=== PATIENT | female | born 2000 | race American Indian/Alaskan Native ===

== ENCOUNTER 2019-05-11 19:49 | Inpatient (IN) | payer OTHER ==
[2019-05-11] MEDS ORDERED: fentaNYL 100 MCG/2 ML INJ IV PRN (21:37)
[2019-05-11] MEDS ORDERED: LIDOCAINE (2%) 20 MG/1 ML VIAL 20 ML MDV INFILTRATI ONE (21:37)
[2019-05-11] MEDS ORDERED: ePHEDrine SULFATE 50 MG/1 ML INJ IV PRN (21:37)
[2019-05-11] MEDS ORDERED: MINERAL OIL 30 ML ORAL LIQD PO PRN (21:37)
[2019-05-11] MEDS ORDERED: TERBUTALINE 1 MG/1 ML INJ SUB-Q PRN (21:37)
[2019-05-11] MEDS ORDERED: NALOXONE 0.4 MG/1 ML INJ IV PRN (21:37)
[2019-05-11] MEDS ORDERED: TERBUTALINE 1 MG/1 ML INJ IVP PRN (21:37)
[2019-05-11] MEDS ORDERED: ZOLPIDEM 5 MG TAB PO PRN (21:59)
[2019-05-11] MEDS ORDERED: OXYTOCIN 20 UNIT/1000ML DRIP 20 UNITS/1,000 ML BAG IV SCH (22:00)
[2019-05-11] MEDS ORDERED: DINOPROSTONE 10 MG VAG SUPP VG ONE (22:30)
[2019-05-11] MEDS ORDERED: BUTORPHANOL 2 MG/1 ML INJ IV PRN (22:30)
[2019-05-11 22:41] LABS: Hematocrit 37.9 % (30.3-42.9); Hemoglobin 12.7 gm/dl (10.1-14.3); Mean Corpuscular HGB Conc 34 % (30-34); Mean Corpuscular Volume 82 fl (79-97); Platelet Count 108 K/mm3 (140-440); Red Blood Count 4.62 M/mm3 (3.65-5.03)
[2019-05-12] MEDS ORDERED: OXYTOCIN DRIP 30 UNITS/500 ML BAG IV SCH (09:14)
[2019-05-12] MEDS: LACTATED RINGERS 1,000 ML IV SCH ×2 (11:11→21:11)
--- NOTE | 2019-05-12 11:30 | History and Physical Report ---
History of Present Illness Date of examination: 05/12/19 Date of admission: 05/11/19 19:49 Chief complaint: IOL secondary to Postdates History of present illness: 18 yo, at 40.6 wks gestation, initated care with [facility] [employer] at 14.1 wks. Her has been uncomplicated. She presents to [facility] for IOL secondary to post-date . She reports + FM. Denies any VB or LOF. 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 denies: smoking, alcohol abuse, prescription drug abuse, IV drug use - Obstetrical History Expected Date of Delivery: 05/06/19 Actual Gestation: 40 Week(s) 6 Day(s) : 2 Para: 0 Hx # Term Pregnancies: 0 Number of Pregnancies: 0 Spontaneous Abortions: 0 Induced : 1 Number of Living Children: 0 Medications and Allergies Allergies Allergy/AdvReac Type Severity Reaction Status Date / Time No Known Allergies Allergy Verified 05/11/19 21:37 Home Medications Medication Instructions Recorded Confirmed Last Taken Type Iron [Iron 18 MG TAB] 18 mg PO QDAY 05/11/19 05/11/19 2 Days Ago History ~05/09/19 Vit-Fe Fumar-FA [ 1 tab PO QDAY 05/11/19 05/11/19 2 Weeks Ago History Vitamin] ~04/27/19 Active Meds: Active Medications Butorphanol Tartrate (Stadol) 2 mg IV Q3H PRN PRN Reason: Pain , Severe (7-10) Ephedrine Sulfate (Ephedrine Sulfate) 10 mg IV Q2M PRN PRN Reason: Hypotension Fentanyl (Sublimaze) 100 mcg IV Q2H PRN PRN Reason: Labor Pain Oxytocin/Sodium Chloride (Pitocin/Ns 20 Unit/1000ml Drip) 20 units in 1,000 mls @ 125 mls/hr IV DIRECT BEN Lactated Ringer's (Lactated Ringers) 1,000 mls @ 125 mls/hr IV DIRECT BEN Last Admin: 05/12/19 11:11 Dose: 125 mls/hr Documented by: Mineral Oil (Mineral Oil) 30 ml PO QHS PRN PRN Reason: Constipation Naloxone HCl (Naloxone) 0.1 mg IV Q2MIN PRN PRN Reason: Res Rate </= 8 or 02 SAT < 92% Terbutaline Sulfate (Brethine) 0.25 mg SUB-Q ONCE PRN PRN Reason: Hyperstimulation/Hypertonicity Terbutaline Sulfate (Brethine) 0.25 mg IVP ONCE PRN PRN Reason: Hyperstimulation/Hypertonicity Zolpidem Tartrate (Ambien) 5 mg PO QHS PRN PRN Reason: Sleep Last Admin: 05/11/19 22:35 Dose: 5 mg Documented by: Review of Systems All systems: negative - Vital Signs Vital signs: Vital Signs Temp Pulse Resp BP 98.5 F 86 16 123/76 05/11/19 20:28 05/11/19 20:28 05/11/19 20:28 05/11/19 20:28 Temp Pulse Resp BP Pulse Ox 98.7 F 125 H 18 126/78 89 05/12/19 07:20 05/12/19 07:39 05/12/19 07:20 05/12/19 07:22 05/12/19 07:39 - Physical Exam Breasts: Positive: deferred Cardiovascular: Regular rate Lungs: Positive: Normal air movement Abdomen: Positive: other (gravid) Genitourinary (Female): Positive: normal external genitalia, normal perenium Vagina: Positive: normal moisture Uterus: Positive: enlarged (S=D) Extremities: Positive: normal Deep Tendon Reflex Grade: Normal +2 - Obstetrical FHR: category 1 Uterine Contraction Monitor Mode: External Cervical Dilatation: 0 Cervical Effacement Percentage: 50 station: -3 Uterine Contraction Pattern: Irregular Uterine Tone Measurement Phase: Resting Uterine Contraction Intensity: Mild Results Result Diagrams: 05/11/19 21:15 Abnormal lab results 05/11/19 Range/Units 21:15 MCH 27 L (28-32) pg RDW 16.0 H (13.2-15.2) % Plt Count 108 L (140-440) K/mm3 All other labs normal. Assessment and Plan - Patient Problems (1) Post-dates Current Visit: Yes Status: Acute Qualifiers: Post-term type: 40-42 weeks gestation Qualified Code(s): O48.0 - Post-term (2) Encounter for induction of labor Current Visit: Yes Status: Acute Plan to address problem: Admit to [facility] Cervidil IOL IV pain medications as desired Epidural if desired once in active labor Anticipate
--- NOTE | 2019-05-12 11:39 | Progress Note ---
Assessment and Plan - Patient Problems (1) Post-dates Current Visit: Yes Status: Acute Qualifiers: Post-term type: 40-42 weeks gestation Qualified Code(s): O48.0 - Post-term (2) Encounter for induction of labor Current Visit: Yes Status: Acute Plan to address problem: Cervidil was removed, cervix remains closed May shower and eat a meal Place a second cervidil after eating x 12 hrs as tolerated IV pain medications as desired Epidural if desired once in active labor Anticipate Subjective - Subjective Date of service: 05/12/19 Principal diagnosis: IOL secondary to post-dates Interval history: 18 yo, at 40.6 wks gestation, 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 Her has been uncomplicated. She presents to [facility] for IOL secondary to post-date . She reports + FM. Denies any VB or LOF. Labs: A+, antibody negative; Rubella immune; VDRL non-reactive; HBsAg negative; HIV negative; Platelets- 179k; Gc/Chlamydia/Trich negative; Vit D 26; MSAFP/Multiple markers negative; 1 hr Gtt 110; GBS negative Patient reports: movement normal, contractions (irregular), no loss of fluid, no vaginal bleeding Objective - Vital Signs Vital Signs: Vital Signs - 12hr 05/12/19 05/12/19 05/12/19 01:19 01:21 05:14 Temperature 98.5 F 98.6 F Pulse Rate 94 H 90 96 H Respiratory 16 16 Rate Blood Pressure 137/62 119/56 Blood Pressure 119/56 114/63 [Right] O2 Sat by Pulse Oximetry 05/12/19 05/12/19 05/12/19 05:15 07:20 07:22 Temperature 98.7 F Pulse Rate 96 H 67 77 Respiratory 18 Rate Blood Pressure 114/63 126/78 Blood Pressure 126/77 [Right] O2 Sat by Pulse 97 Oximetry 05/12/19 05/12/19 05/12/19 07:23 07:28 07:33 Temperature Pulse Rate 72 78 87 Respiratory Rate Blood Pressure Blood Pressure [Right] O2 Sat by Pulse 98 98 97 Oximetry 05/12/19 05/12/19 05/12/19 07:34 07:38 07:39 Temperature Pulse Rate 129 H 96 H 125 H Respiratory Rate Blood Pressure Blood Pressure [Right] O2 Sat by Pulse 92 83 L 89 Oximetry - Exam Breasts: deferred Cardiovascular: Regular rate Lungs: Normal air movement FHR: category 1 Uterine Contraction Monitor Mode: External - Labs Labs: Abnormal Labs 05/11/19 21:15 MCH 27 L RDW 16.0 H Plt Count 108 L Laboratory Results - last 24 hr 05/11/19 05/11/19 05/11/19 21:15 21:15 21:15 WBC 8.9 RBC 4.62 Hgb 12.7 Hct 37.9 MCV 82 MCH 27 L MCHC 34 RDW 16.0 H Plt Count 108 L Syphilis IgG Antibody Non-reactive Blood Type A POSITIVE Antibody Screen Negative
[2019-05-12] MEDS ORDERED: DINOPROSTONE 10 MG VAG SUPP VG ONE (12:00)
[2019-05-13] MEDS ORDERED: OXYTOCIN DRIP 30 UNITS/500 ML BAG IV SCH (01:09)
--- NOTE | 2019-05-13 01:09 | Progress Note ---
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 Her has been uncomplicated. She presents to [facility] for IOL secondary to post-date . She reports + FM. Denies any VB or LOF. Labs: A+, antibody negative; Rubella immune; VDRL non-reactive; HBsAg negative; HIV negative; Platelets- 179k; Gc/Chlamydia/Trich negative; Vit D 26; MSAFP/Multiple markers negative; 1 hr Gtt 110; GBS negative Patient reports: movement normal, contractions (irregular), no loss of fluid, no vaginal bleeding Objective - Vital Signs Vital Signs: Vital Signs - 12hr 05/12/19 05/12/19 05/12/19 17:23 17:24 17:25 Temperature 98.6 F Pulse Rate 83 88 82 Respiratory 16 Rate Blood Pressure 104/61 Blood Pressure 104/61 [Right] O2 Sat by Pulse 99 97 Oximetry 05/12/19 05/12/19 05/12/19 19:26 19:27 19:28 Temperature Pulse Rate 72 65 Respiratory Rate Blood Pressure 131/81 Blood Pressure [Right] O2 Sat by Pulse 90 86 Oximetry 05/12/19 05/12/19 05/12/19 19:31 19:36 19:41 Temperature Pulse Rate 79 65 71 Respiratory Rate Blood Pressure Blood Pressure [Right] O2 Sat by Pulse 98 99 99 Oximetry 05/12/19 05/12/19 05/12/19 19:46 19:51 19:56 Temperature Pulse Rate 89 92 H 83 Respiratory Rate Blood Pressure Blood Pressure [Right] O2 Sat by Pulse 98 98 99 Oximetry 05/12/19 20:01 Temperature Pulse Rate 86 Respiratory Rate Blood Pressure Blood Pressure [Right] O2 Sat by Pulse 99 Oximetry - Exam Breasts: deferred Cardiovascular: Regular rate Lungs: Normal air movement FHR: category 1 Uterine Contraction Monitor Mode: External Cervical Dilatation: 1.5 (vertex) Cervical Effacement Percentage: 80 station: -1 Uterine Contraction Pattern: Irregular Uterine Tone Measurement Phase: Resting Uterine Contraction Intensity: Mild Extremities: normal - Labs Labs: Abnormal Labs 05/11/19 21:15 MCH 27 L RDW 16.0 H Plt Count 108 L
[2019-05-13] MEDS: LACTATED RINGERS 1,000 ML IV SCH ×3 (04:36→16:42)
[2019-05-13 08:22] LABS: Hematocrit 34.6 % (30.3-42.9); Hemoglobin 11.6 gm/dl (10.1-14.3); Mean Corpuscular HGB Conc 34 % (30-34); Mean Corpuscular Volume 82 fl (79-97); Red Blood Count 4.24 M/mm3 (3.65-5.03); Red Cell Distribution Width 16.2 % (13.2-15.2)
[2019-05-13 08:26] LABS: Platelet Count 92 K/mm3 (140-440)
[2019-05-13] MEDS ORDERED: ePHEDrine SULFATE 50 MG/1 ML INJ IV PRN (10:02)
[2019-05-13] MEDS ORDERED: NALOXONE 2 MG/2 ML INJ IV PRN (10:02)
--- NOTE | 2019-05-13 10:02 | Anesthesia Consultation ---
Anesthesia Consult and Med Hx Date of service: 05/13/19 - Airway Anesthetic Teeth Evaluation: Good ROM Head & Neck: Adequate Mental/Hyoid Distance: Adequate Mallampati Class: Class II Intubation Access Assessment: Good - Pulmonary Exam CTA: Yes - Cardiac Exam Cardiac Exam: RRR - Pre-Operative Health Status ASA Pre-Surgery Classification: ASA2, Emergency Proposed Anesthetic Plan: Epidural - Pulmonary Hx Asthma: No COPD: No Hx Pneumonia: No - Cardiovascular System Hx Hypertension: No - Central Nervous System Hx Seizures: No Hx Psychiatric Problems: No - Endocrine Hx Renal Disease: No Hx End Stage Renal Disease: No Hx Hypothyroidism: No Hx Hyperthyroidism: No - Hematic Hx Anemia: Yes (Taking iron) Hx Sickle Cell Disease: No - Other Systems Hx Alcohol Use: No
[2019-05-13] MEDS ORDERED: fentaNYL-BUPIV 2 MCG/ML-0.125% 200 MCG/100 ML BAG EPIDURAL SCH (11:00)
--- NOTE | 2019-05-13 12:56 | Progress Note ---
Assessment and Plan A: IUP @ 41 Weeks Category I Tracing GBS Negative P: AROM Internals X 2 Continue Pitocin Augmentation Subjective - Subjective Date of service: 05/13/19 Principal diagnosis: IOL secondary to post-dates Patient reports: movement normal, other (Resting well under epidural anesthesia), no loss of fluid, no vaginal bleeding Objective - Vital Signs Vital Signs: Vital Signs - 12hr 05/13/19 05/13/19 05/13/19 01:09 01:10 01:12 Temperature 98.2 F Pulse Rate 82 83 78 Respiratory 18 Rate Blood Pressure 123/76 Blood Pressure 123/76 [Right] O2 Sat by Pulse 99 98 Oximetry 05/13/19 05/13/19 05/13/19 01:17 01:22 01:27 Temperature Pulse Rate 74 90 102 H Respiratory 18 Rate Blood Pressure Blood Pressure [Right] O2 Sat by Pulse 99 98 98 Oximetry 05/13/19 05/13/19 05/13/19 01:32 01:37 01:40 Temperature Pulse Rate 88 96 H 78 Respiratory Rate Blood Pressure 118/61 Blood Pressure [Right] O2 Sat by Pulse 98 98 Oximetry 05/13/19 05/13/19 05/13/19 01:42 01:47 01:52 Temperature Pulse Rate 76 83 83 Respiratory Rate Blood Pressure Blood Pressure [Right] O2 Sat by Pulse 97 97 97 Oximetry 05/13/19 05/13/19 05/13/19 01:54 01:57 02:02 Temperature Pulse Rate 79 83 86 Respiratory Rate Blood Pressure 109/59 Blood Pressure [Right] O2 Sat by Pulse 97 98 Oximetry 05/13/19 05/13/19 05/13/19 02:07 02:11 02:12 Temperature Pulse Rate 94 H 85 78 Respiratory Rate Blood Pressure 110/53 Blood Pressure [Right] O2 Sat by Pulse 98 97 Oximetry 05/13/19 05/13/19 05/13/19 02:17 02:19 02:22 Temperature Pulse Rate 90 93 H 87 Respiratory Rate Blood Pressure 122/57 Blood Pressure [Right] O2 Sat by Pulse 99 99 Oximetry 05/13/19 05/13/19 05/13/19 02:27 02:32 02:37 Temperature Pulse Rate 80 81 73 Respiratory Rate Blood Pressure Blood Pressure [Right] O2 Sat by Pulse 98 97 98 Oximetry 05/13/19 05/13/19 05/13/19 02:42 02:47 02:52 Temperature Pulse Rate 73 76 76 Respiratory Rate Blood Pressure Blood Pressure [Right] O2 Sat by Pulse 98 98 97 Oximetry 05/13/19 05/13/19 05/13/19 02:55 02:57 03:02 Temperature Pulse Rate 73 70 84 Respiratory Rate Blood Pressure 113/66 Blood Pressure [Right] O2 Sat by Pulse 98 97 Oximetry 05/13/19 05/13/19 05/13/19 03:07 03:12 03:17 Temperature Pulse Rate 81 87 73 Respiratory Rate Blood Pressure Blood Pressure [Right] O2 Sat by Pulse 98 98 98 Oximetry 05/13/19 05/13/19 05/13/19 03:22 03:25 03:27 Temperature Pulse Rate 68 75 81 Respiratory Rate Blood Pressure 117/62 Blood Pressure [Right] O2 Sat by Pulse 98 97 Oximetry 05/13/19 05/13/19 05/13/19 03:32 03:37 03:42 Temperature Pulse Rate 74 78 86 Respiratory Rate Blood Pressure Blood Pressure [Right] O2 Sat by Pulse 97 99 99 Oximetry 05/13/19 05/13/19 05/13/19 03:47 03:52 03:55 Temperature Pulse Rate 77 72 73 Respiratory Rate Blood Pressure 117/67 Blood Pressure [Right] O2 Sat by Pulse 99 99 Oximetry 05/13/19 05/13/19 05/13/19 03:57 04:02 04:07 Temperature Pulse Rate 84 71 74 Respiratory Rate Blood Pressure Blood Pressure [Right] O2 Sat by Pulse 99 99 99 Oximetry 05/13/19 05/13/19 05/13/19 04:09 04:14 04:20 Temperature Pulse Rate 69 107 H 82 Respiratory Rate Blood Pressure Blood Pressure [Right] O2 Sat by Pulse 83 L 0 L 0 L Oximetry 05/13/19 05/13/19 05/13/19 04:34 04:39 07:17 Temperature Pulse Rate 98 H 67 Respiratory Rate Blood Pressure 121/73 Blood Pressure [Right] O2 Sat by Pulse 78 L 0 L 99 Oximetry 05/13/19 05/13/19 05/13/19 08:50 09:51 10:51 Temperature Pulse Rate 85 69 87 Respiratory Rate Blood Pressure 134/81 131/78 Blood Pressure [Right] O2 Sat by Pulse 98 Oximetry 05/13/19 05/13/19 05/13/19 10:56 10:57 11:01 Temperature Pulse Rate 78 82 80 Respiratory Rate Blood Pressure Blood Pressure [Right] O2 Sat by Pulse 97 94 96 Oximetry 05/13/19 05/13/19 05/13/19 11:04 11:06 11:09 Temperature Pulse Rate 82 75 95 H Respiratory Rate Blood Pressure 121/66 122/63 124/64 Blood Pressure [Right] O2 Sat by Pulse 96 Oximetry 05/13/19 05/13/19 05/13/19 11:11 11:15 11:16 Temperature Pulse Rate 78 89 100 H Respiratory Rate Blood Pressure 115/57 Blood Pressure [Right] O2 Sat by Pulse 96 96 Oximetry 05/13/19 05/13/19 05/13/19 11:19 11:21 11:22 Temperature Pulse Rate 78 85 74 Respiratory Rate Blood Pressure 113/55 114/60 Blood Pressure [Right] O2 Sat by Pulse 98 Oximetry 05/13/19 05/13/19 05/13/19 11:27 11:32 11:37 Temperature Pulse Rate 83 82 89 Respiratory Rate Blood Pressure Blood Pressure [Right] O2 Sat by Pulse 98 98 97 Oximetry 05/13/19 05/13/19 05/13/19 11:41 11:42 11:47 Temperature Pulse Rate 90 64 62 Respiratory Rate Blood Pressure 115/72 Blood Pressure [Right] O2 Sat by Pulse 98 97 Oximetry 05/13/19 05/13/19 05/13/19 11:52 11:57 12:02 Temperature Pulse Rate 67 68 62 Respiratory Rate Blood Pressure Blood Pressure [Right] O2 Sat by Pulse 97 97 96 Oximetry 05/13/19 05/13/19 05/13/19 12:07 12:12 12:17 Temperature Pulse Rate 65 64 77 Respiratory Rate Blood Pressure Blood Pressure [Right] O2 Sat by Pulse 97 98 98 Oximetry 05/13/19 05/13/19 05/13/19 12:22 12:27 12:32 Temperature Pulse Rate 76 73 64 Respiratory Rate Blood Pressure Blood Pressure [Right] O2 Sat by Pulse 98 98 98 Oximetry 05/13/19 05/13/19 05/13/19 12:37 12:42 12:47 Temperature Pulse Rate 73 80 86 Respiratory Rate Blood Pressure Blood Pressure [Right] O2 Sat by Pulse 100 100 100 Oximetry - Exam Breasts: normal Cardiovascular: Regular rate Lungs: Clear to auscultation, Normal air movement Abdomen: Present: normal appearance, soft, normal bowel sounds Uterus: Present: normal, firm, fundal height above umbilicus FHR: category 2 FHR comments: FHR: 130, min to mod varability, +early decels, -accels Uterine Contraction Monitor Mode: Internal Cervical Dilatation: 3 (large amount of clear fluid upon AROM at 1239) Cervical Effacement Percentage: 90 station: -2 Uterine Contraction Pattern: Irregular Uterine Tone Measurement Phase: Resting Uterine Contraction Intensity: Moderate Extremities: normal - Labs Labs: Abnormal Labs 05/11/19 05/13/19 21:15 07:40 WBC 11.3 H MCH 27 L 27 L RDW 16.0 H 16.2 H Plt Count 108 L 92 L Laboratory Results - last 24 hr 05/13/19 07:40 WBC 11.3 H RBC 4.24 Hgb 11.6 Hct 34.6 MCV 82 MCH 27 L MCHC 34 RDW 16.2 H Plt Count 92 L
[2019-05-13] MEDS ORDERED: BUPIVACAINE/PF (0.5%) 5 MG/1 ML 10 ML VIAL INFILTRATI ONE (17:29)
--- NOTE | 2019-05-13 17:29 | Progress Note ---
Subjective - Subjective Date of service: 05/13/19 Principal diagnosis: IOL secondary to post-dates Interval history: PAtient 6cm/80/-3 +ve molding NRFHT plan for primary c./section Informed consent obtained NPO to OR for procedure James Castorena MD Patient reports: movement normal, other (Resting well under epidural anesthesia), no loss of fluid, no vaginal bleeding Objective - Vital Signs Vital Signs: Vital Signs - 12hr 05/13/19 05/13/19 05/13/19 07:17 08:50 09:51 Pulse Rate 67 85 69 Blood Pressure 121/73 134/81 131/78 O2 Sat by Pulse 99 Oximetry 05/13/19 05/13/19 05/13/19 10:51 10:56 10:57 Pulse Rate 87 78 82 Blood Pressure O2 Sat by Pulse 98 97 94 Oximetry 05/13/19 05/13/19 05/13/19 11:01 11:04 11:06 Pulse Rate 80 82 75 Blood Pressure 121/66 122/63 O2 Sat by Pulse 96 96 Oximetry 05/13/19 05/13/19 05/13/19 11:09 11:11 11:15 Pulse Rate 95 H 78 89 Blood Pressure 124/64 115/57 O2 Sat by Pulse 96 Oximetry 05/13/19 05/13/19 05/13/19 11:16 11:19 11:21 Pulse Rate 100 H 78 85 Blood Pressure 113/55 114/60 O2 Sat by Pulse 96 Oximetry 05/13/19 05/13/19 05/13/19 11:22 11:27 11:32 Pulse Rate 74 83 82 Blood Pressure O2 Sat by Pulse 98 98 98 Oximetry 05/13/19 05/13/19 05/13/19 11:37 11:41 11:42 Pulse Rate 89 90 64 Blood Pressure 115/72 O2 Sat by Pulse 97 98 Oximetry 05/13/19 05/13/19 05/13/19 11:47 11:52 11:57 Pulse Rate 62 67 68 Blood Pressure O2 Sat by Pulse 97 97 97 Oximetry 05/13/19 05/13/19 05/13/19 12:02 12:07 12:12 Pulse Rate 62 65 64 Blood Pressure O2 Sat by Pulse 96 97 98 Oximetry 05/13/19 05/13/19 05/13/19 12:17 12:22 12:27 Pulse Rate 77 76 73 Blood Pressure O2 Sat by Pulse 98 98 98 Oximetry 05/13/19 05/13/19 05/13/19 12:32 12:37 12:42 Pulse Rate 64 73 80 Blood Pressure O2 Sat by Pulse 98 100 100 Oximetry 05/13/19 05/13/19 05/13/19 12:47 12:52 12:57 Pulse Rate 86 72 70 Blood Pressure O2 Sat by Pulse 100 100 100 Oximetry 05/13/19 05/13/19 05/13/19 13:02 13:07 13:12 Pulse Rate 70 57 L 57 L Blood Pressure O2 Sat by Pulse 100 100 100 Oximetry 05/13/19 05/13/19 05/13/19 13:17 13:22 13:27 Pulse Rate 64 65 62 Blood Pressure O2 Sat by Pulse 100 100 100 Oximetry 05/13/19 05/13/19 05/13/19 13:32 13:37 13:42 Pulse Rate 66 61 66 Blood Pressure O2 Sat by Pulse 100 100 99 Oximetry 05/13/19 05/13/19 05/13/19 13:47 13:52 13:57 Pulse Rate 65 62 63 Blood Pressure O2 Sat by Pulse 99 99 99 Oximetry 05/13/19 05/13/19 05/13/19 14:02 14:07 14:12 Pulse Rate 73 74 75 Blood Pressure O2 Sat by Pulse 99 99 100 Oximetry 05/13/19 05/13/19 05/13/19 14:17 14:22 14:27 Pulse Rate 65 61 64 Blood Pressure O2 Sat by Pulse 99 99 99 Oximetry 05/13/19 05/13/19 05/13/19 14:32 14:37 14:40 Pulse Rate 65 77 83 Blood Pressure O2 Sat by Pulse 99 99 92 Oximetry 05/13/19 05/13/19 05/13/19 14:42 14:47 14:52 Pulse Rate 75 71 90 Blood Pressure O2 Sat by Pulse 99 100 100 Oximetry 05/13/19 05/13/19 05/13/19 14:57 15:02 15:07 Pulse Rate 71 81 63 Blood Pressure O2 Sat by Pulse 99 99 99 Oximetry 05/13/19 05/13/19 05/13/19 15:12 15:16 15:17 Pulse Rate 71 74 95 H Blood Pressure O2 Sat by Pulse 99 91 99 Oximetry 05/13/19 05/13/19 05/13/19 15:22 15:27 15:32 Pulse Rate 78 85 81 Blood Pressure O2 Sat by Pulse 99 99 98 Oximetry 05/13/19 05/13/19 05/13/19 15:37 15:42 15:45 Pulse Rate 80 73 112 H Blood Pressure O2 Sat by Pulse 98 98 94 Oximetry 05/13/19 05/13/19 05/13/19 15:47 15:52 15:57 Pulse Rate 110 H 85 76 Blood Pressure O2 Sat by Pulse 100 98 99 Oximetry 05/13/19 05/13/19 05/13/19 16:02 16:07 16:12 Pulse Rate 79 79 76 Blood Pressure O2 Sat by Pulse 99 100 100 Oximetry 05/13/19 05/13/19 05/13/19 16:17 16:22 16:27 Pulse Rate 72 66 66 Blood Pressure O2 Sat by Pulse 99 99 98 Oximetry 05/13/19 05/13/19 05/13/19 16:32 16:37 16:39 Pulse Rate 80 91 H 115 H Blood Pressure O2 Sat by Pulse 99 99 92 Oximetry 05/13/19 05/13/19 05/13/19 16:42 16:47 16:52 Pulse Rate 73 66 66 Blood Pressure O2 Sat by Pulse 99 100 100 Oximetry 05/13/19 05/13/19 05/13/19 16:57 17:02 17:07 Pulse Rate 63 62 61 Blood Pressure O2 Sat by Pulse 100 99 100 Oximetry 05/13/19 05/13/19 05/13/19 17:12 17:16 17:17 Pulse Rate 69 77 72 Blood Pressure O2 Sat by Pulse 100 90 100 Oximetry 05/13/19 17:22 Pulse Rate 74 Blood Pressure O2 Sat by Pulse 100 Oximetry - Labs Labs: Abnormal Labs 05/11/19 05/13/19 21:15 07:40 WBC 11.3 H MCH 27 L 27 L RDW 16.0 H 16.2 H Plt Count 108 L 92 L Laboratory Results - last 24 hr 05/13/19 07:40 WBC 11.3 H RBC 4.24 Hgb 11.6 Hct 34.6 MCV 82 MCH 27 L MCHC 34 RDW 16.2 H Plt Count 92 L
[2019-05-13] MEDS ORDERED: DEXMEDETOMIDINE 200 MCG/2 ML VIAL IV ONE (17:34)
[2019-05-13] MEDS ORDERED: WATER FOR IRRIG STERILE 1,500 ML BOTTLE IR ONE (17:50)
[2019-05-13] MEDS ORDERED: SODIUM CHLORIDE 0.9% IRR 1,500 ML BOTTLE IR ONE (17:50)
[2019-05-13] MEDS ORDERED: OXYTOCIN 20 UNIT/1000ML DRIP 20 UNITS/1,000 ML BAG IV SCH ×2 (18:00→20:00)
[2019-05-13] MEDS ORDERED: ONDANSETRON 4 MG/2 ML INJ ONE (18:00)
[2019-05-13] MEDS ORDERED: LACTATED RINGERS 1,000 ML IV SCH (18:00)
[2019-05-13] MEDS ORDERED: KETOROLAC 30 MG/1 ML INJ ONE (18:03)
[2019-05-13] MEDS ORDERED: OXYTOCIN 10 UNIT/1 ML INJ ONE (18:03)
[2019-05-13] MEDS ORDERED: FAMOTIDINE 20 MG/2 ML INJ IV ONE (18:29)
[2019-05-13] MEDS ORDERED: METOCLOPRAMIDE 10 MG/2 ML INJ IV ONE (18:29)
[2019-05-13] MEDS ORDERED: BICITRA ORAL LIQD 30ML PO SCH (18:29)
--- NOTE | 2019-05-13 18:43 | XRay Report ---
ABDOMEN 1 VIEW(S) INDICATION / CLINICAL INFORMATION: Loss OR instruments. COMPARISON: None available. FINDINGS: TUBES / LINES: None. BOWEL GAS PATTERN/EXTRALUMINAL GAS: No significant abnormality. No pneumatosis or secondary signs of free air. ADDITIONAL FINDINGS: No significant additional findings. No radiopaque foreign bodies. IMPRESSION: 1. No unexpected radiopaque foreign bodies in the abdomen. Signer Name: Antonio Natarajan MD Signed: 05/13/2019 6:38 PM Workstation Name: [id number]
--- NOTE | 2019-05-13 18:59 | Procedure Note ---
OB Delivery Note - Section Preop diagnosis: nonreassuring FHR tracing Postop diagnosis: same section procedure: primary low transverse Disposition: PACU Complications: none Narrative: Date of Surgery 05/13/2019 Preoperative Diagnosis: NRFHT Postoperative Diagnosis: same Procedure: Emergent Primary Low-Transverse Section via Pfannenstiel Incision Surgeon: Dr. Tricia Castorena Cuff Maker: Scrub EBL 800ml Fluid: 1000ml Urine: 200ml bloody urine Drains: Marquez to Turner Findings: normal, uterus tubes and ovariesx2, Viable male, weight 2395gms, 8,9 Patient was noted to be 6cm/70%/-3 with moderate caput and no descent with pushing. Contractions adequate with terminal bradycardia to 60bpm. The decision was made for emergent delivery and informed consent obtained. The patient was taken to the OR and adequate epidural anesthesia verified. The patient was placed in the lateral decubitus position with a leftward tilt. She was prepped and drapped in a sterile fashion. A time out was verified. A pfannenstiel incision was made and taken down sharply to the underlying fascia. The fascia was incised in the midline and extended laterally bluntly. The abdomen was entered bluntly and the bladder blade inserted. The uterine incision was made sharply with the scalpel and extended laterally bluntly. The vertex was delivered atrauamtically, no nuchal cord. The remainder of the delivery was atraumatic. The cord was clamped and cut and the baby handed to waiting gis analyst developer staff. Cord gasses and cord blood obtained. The placenta was then delivered manually, the uterus exteriorized and cleared of all clots and debris. The uterine incision was closed in two layers of 0-Vicryl. The uterus placed back in the abdomen. A second look at the uterine incision assured hemostasis. The peritoneum was closed with 3-0 Vicryl and the rectus muscles approximated with 2-0 Vicryl . The fascia closed with 0-Vicryl in a running fashion and the subcuticular structures closed with interrupted 0-Vicyl. The skin closed with megha and a pressure dressing applied. The bladder was confirmed intact with infusion of sterile milk into the bladder through the marquez. There was no intra-abdominal sterile milk noted. As there was no narciso count second to emergent nature of the procedure, an Xray was done prior to the final closue of the abdomen. There were no retained needles,sponges or instruments. Patient tolerated the procedure well. Mom and baby to PACU/Nursery in stable condition. Berto FREED
[2019-05-13] MEDS ORDERED: ONDANSETRON 4 MG/2 ML INJ IV PRN (19:05)
[2019-05-13] MEDS ORDERED: PROMETHAZINE 25 MG TAB PO PRN (19:05)
[2019-05-13] MEDS ORDERED: HYDROmorphone 1 MG/1 ML INJ IV PRN ×2 (19:05)
[2019-05-13] MEDS ORDERED: NALOXONE 0.4 MG/1 ML INJ IV PRN ×2 (19:05→19:08)
[2019-05-13] MEDS ORDERED: PROMETHAZINE 25 MG RECT SUPP PR PRN (19:05)
[2019-05-13] MEDS ORDERED: WITCH HAZEL/ GLYCERIN PAD TP PRN (19:08)
[2019-05-13] MEDS ORDERED: LANOLIN/ZINC/DIMETHICONE (LANSINOH) 7 GM TP PRN (19:08)
[2019-05-13] MEDS ORDERED: ACETAMINOPHEN 325 MG TAB PO PRN (19:08)
[2019-05-13] MEDS ORDERED: MORPHINE 4 MG/1 ML INJ IV PRN (19:08)
[2019-05-14] MEDS ORDERED: D5W/LACTATED RINGERS 1,000 ML IV SCH (01:00)
[2019-05-14 08:52] LABS: Hematocrit 30.2 % (30.3-42.9); Hemoglobin 10.2 gm/dl (10.1-14.3)
[2019-05-14] MEDS: oxyCODONE /ACETAMINOPHEN 5-325MG TAB PO PRN ×3 (11:11→23:41)
--- NOTE | 2019-05-14 11:49 | Progress Note ---
Assessment and Plan A: POD#1 s/p Primary C/SL Pain well controlled Stable P: Continue routine PP/PO orders Abdominal binder Anticipate discharge home 24-48 hrs Subjective - Subjective Date of service: 05/14/19 Principal diagnosis: POD#1 s/p Primary C/S Patient reports: appetite normal, voiding normally, pain well controlled, flatus, ambulating normally, no bowel movement : doing well, nursing well Objective - Vital Signs Latest vital signs: Vital Signs Temp Pulse Resp BP Pulse Ox 05/14/19 06:08 99.0 F 05/14/19 05:08 20 05/14/19 01:25 98.7 F 05/14/19 00:37 113 H 20 135/73 95 05/14/19 00:33 20 05/13/19 20:40 97.4 F L 65 18 126/79 98 05/13/19 20:08 97.4 F L 73 15 103/65 98 05/13/19 20:00 88 16 103/65 98 05/13/19 19:45 74 16 101/61 98 05/13/19 19:30 92 H 16 96/46 98 05/13/19 19:15 97 H 16 111/54 98 05/13/19 19:00 57 L 16 83/39 98 05/13/19 18:55 59 L 16 93/55 98 05/13/19 18:52 96.9 F L 59 L 16 95/49 98 05/13/19 17:32 108 H 95 05/13/19 17:27 124 H 100 05/13/19 17:22 74 100 05/13/19 17:17 72 100 05/13/19 17:16 77 90 05/13/19 17:12 69 100 05/13/19 17:07 61 100 05/13/19 17:02 62 99 05/13/19 16:57 63 100 05/13/19 16:52 66 100 05/13/19 16:47 66 100 05/13/19 16:42 73 99 05/13/19 16:39 115 H 92 05/13/19 16:37 91 H 99 05/13/19 16:32 80 99 05/13/19 16:27 66 98 05/13/19 16:22 66 99 05/13/19 16:17 72 99 05/13/19 16:12 76 100 05/13/19 16:07 79 100 05/13/19 16:02 79 99 05/13/19 15:57 76 99 05/13/19 15:52 85 98 05/13/19 15:47 110 H 100 05/13/19 15:45 112 H 94 05/13/19 15:42 73 98 05/13/19 15:37 80 98 05/13/19 15:32 81 98 05/13/19 15:27 85 99 05/13/19 15:22 78 99 05/13/19 15:17 95 H 99 05/13/19 15:16 74 91 05/13/19 15:12 71 99 05/13/19 15:07 63 99 05/13/19 15:02 81 99 05/13/19 14:57 71 99 05/13/19 14:52 90 100 05/13/19 14:47 71 100 05/13/19 14:42 75 99 05/13/19 14:40 83 92 05/13/19 14:37 77 99 05/13/19 14:32 65 99 05/13/19 14:27 64 99 05/13/19 14:22 61 99 05/13/19 14:17 65 99 05/13/19 14:12 75 100 05/13/19 14:07 74 99 05/13/19 14:02 73 99 05/13/19 13:57 63 99 05/13/19 13:52 62 99 05/13/19 13:47 65 99 05/13/19 13:42 66 99 05/13/19 13:37 61 100 05/13/19 13:32 66 100 05/13/19 13:27 62 100 05/13/19 13:22 65 100 05/13/19 13:17 64 100 05/13/19 13:12 57 L 100 05/13/19 13:07 57 L 100 05/13/19 13:02 70 100 05/13/19 12:57 70 100 05/13/19 12:52 72 100 05/13/19 12:47 86 100 05/13/19 12:42 80 100 05/13/19 12:37 73 100 05/13/19 12:32 64 98 05/13/19 12:27 73 98 05/13/19 12:22 76 98 05/13/19 12:17 77 98 05/13/19 12:12 64 98 05/13/19 12:07 65 97 05/13/19 12:02 62 96 05/13/19 11:57 68 97 05/13/19 11:52 67 97 Intake and Output 05/13/19 05/14/19 05/14/19 23:59 07:59 15:59 Intake Total 2525.367 240 10 Output Total 1200 1600 Balance 1325.367 -1360 10 Intake: IV 2405.367 10 Lactated Ringers 1,000 ml 504.167 @ 125 mls/hr IV DIRECT BEN Rx#:[id number] Left Wrist 10 PITOCin/NS 30 UNIT/500ML 1.2 30 units In 500 ml @ 1 mls/hr IV TITR BEN Rx#: [id number] Oral 240 Intake, Free Water 120 Output: Urine 1200 1600 Indwelling Catheter 1600 Void 800 Other: Total, Intake Amount 240 Total, Output Amount 800 1000 - Exam Breasts: Present: normal, Cardiovascular: Present: Regular rate, Normal S1, Normal S2, No murmurs Lungs: Present: Clear to auscultation, Normal air movement Abdomen: Present: normal appearance, soft, tenderness (as expected post-op), normal bowel sounds. Absent: distention Vulva: both: normal Uterus: Present: firm, fundal height at umbilicus Extremities: Present: normal Deep Tendon Reflex Grade: Normal +2 Incision: Present: normal, dry, intact, dressed (Pressure dressing CDI) - Labs Labs: Abnormal lab results 05/13/19 05/13/19 05/14/19 Range/Units 18:20 18:24 08:04 Hct 30.2 L (30.3-42.9) % POC ABG pH 7.301 L 7.313 L (7.35-7.45) POC ABG pCO2 45.9 H 45.4 H (35-45)
[2019-05-14] MEDS: IBUPROFEN 800 MG TAB PO PRN ×2 (13:35→20:05)
[2019-05-15] MEDS ORDERED: TETANUS,DIPH,PERTUSS(ACELL) VACCINE 0.5 ML SYRINGE IM ONE (06:24)
[2019-05-15] MEDS: oxyCODONE /ACETAMINOPHEN 5-325MG TAB PO PRN ×3 (06:30→21:42)
[2019-05-15] MEDS: FERROUS SULFATE 325 MG TAB PO SCH (10:08)
--- NOTE | 2019-05-15 12:23 | Discharge Summary ---
Providers - Providers Date of Admission: 05/11/19 19:49 Date of discharge: 05/16/19 (1200) Attending physician: ELAN GARCÍA MD Primary care physician: ELAN GARCÍA MD Hospitalization Reason for admission: induction of labor Delivery: Procedure: primary low transverse Episiotomy: none Laceration: none Incision: other ([place] dry and intact, no signs of infection noted) Other procedures: none complications: none Discharge diagnosis: other (S/P ; Anemia) [place] baby: female Hospital course: See admission H & P; OB operative note and PP progress notes Condition at discharge: Stable Disposition: DC- TO HOME OR SELFCARE - Discharge Diagnoses (1) Post-dates Status: Acute Qualifiers: Post-term type: 40-42 weeks gestation Qualified Code(s): O48.0 - Post-term (2) Encounter for induction of labor Status: Acute Plan - Discharge Medications Prescriptions: Ferric Citrate (Nf) [Auryxia] 210 mg PO DAILY 30 Days #30 tablet - Provider Discharge Summary Activity: routine, no sex for 6 weeks, no heavy lifting 4 weeks, no strenuous exercise Diet: other (Iron rich diet) Instructions: routine Additional instructions: [] Smoking cessation referral if applicable(refer to patient education folder for contact #) [] Refer to [facility] Booklet Call your doctor immediately for: * Fever > 100.5 * Heavy vaginal bleeding ( >1 pad per hour) * Severe persistent headache * Shortness of breath * Reddened, hot, painful area to leg or breast * Drainage or odor from incision. * Keep incision clean and dry at all times and follow doctor's instructions regarding bathing/showering - Follow up plan Follow up: ELAN GARCÍA MD [Primary Care Provider] - 7 Days
[2019-05-16] MEDS: IBUPROFEN 800 MG TAB PO PRN (06:20)
[2019-05-16] MEDS: FERROUS SULFATE 325 MG TAB PO SCH (10:21)
[2019-05-16] MEDS: oxyCODONE /ACETAMINOPHEN 5-325MG TAB PO PRN (10:30)
[2019-05-16 13:13] VITALS: BP 111/63
== END 2019-05-16 14:15 | disposition home or self-care (01) | DRG 766 ==
LOC: LD 19:49 → OB 05-13 21:20
PROVIDERS: ADMIT Obstetrics & Gynecology; ATTEND Obstetrics & Gynecology
PROC: 10D00Z1 Extraction of Products of Conception, Low, Open Approach (ICD-10-PCS; principal; 2019-05-13)
PROC: 4A033R1 Measurement of Arterial Saturation, Peripheral, Percutaneous Approach (ICD-10-PCS; 2019-05-13)
PROC: 10907ZC Drainage of Amniotic Fluid, Therapeutic from Products of Conception, Via Natural or Artificial Opening (ICD-10-PCS; 2019-05-13)
PROC: 3E0234Z Introduction of Serum, Toxoid and Vaccine into Muscle, Percutaneous Approach (ICD-10-PCS; 2019-05-15)
DX: O76 Abnormality in fetal heart rate and rhythm complicating labor and delivery (principal); O48.0 Post-term pregnancy; O99.02 Anemia complicating childbirth; Z37.0 Single live birth; Z23 Encounter for immunization; Z3A.40 40 weeks gestation of pregnancy
CPT/HCPCS: 36415; 59200; 74018; 82803; 85014; 85018; 85027; 86592; 86850; 86900; 86901; 88307; 90471; 90715; G0378; J0595; J1170; J1885; J2405; J2590; J2765; J3490; J7120; J7121